=== PATIENT | female | born 1990 | race Caucasian/White ===

== ENCOUNTER → 2018-08-26 | Outpatient (CLI) | payer OTHER ==
--- NOTE | 2018-08-26 15:40 | US ---
EXAMINATION TYPE: US pelvic complete DATE OF EXAM: 08/26/2018 COMPARISON: NONE CLINICAL HISTORY: R10.2 Pelvic Pain. Pain TECHNIQUE: Transabdominal (TA). EXAM MEASUREMENTS: Uterus: 9.2 x 5.3 x 7.0 cm Endometrial Stripe: 1.2 cm Right Ovary: 3.6 x 1.5 x 2.2 cm Left Ovary: 4.1 x 1.9 x 2.6 cm 1. Uterus: Retroverted wnl 2. Endometrium: wnl 3. Right Ovary: wnl 4. Left Ovary: wnl 5. Bilateral Adnexa: wnl 6. Posterior cul-de-sac: wnl Heterogeneous retroverted uterus with endometrium measuring 12 mm in thickness, last known menstrual period not provided. Correlate clinically. No free fluid in pelvic cul-de-sac. Both ovaries are identified without suspicious ovarian or adnexal lesion. IMPRESSION: As above
== END ==
LOC: RADUSWWP 14:56
PROVIDERS: ATTEND Family Medicine
DX: R10.2 Pelvic and perineal pain (principal)
CPT/HCPCS: 76856